=== PATIENT | female | born 1930 | race African-American/Black ===

== ENCOUNTER 2017-03-24 05:45 | Inpatient (IN) | payer MEDICARE, OTHER ==
[2017-03-24] VITALS (16 sets, daily range): BP systolic 146–202; BP diastolic 61–117
[~2017-03-24] VITALS: Ht 167.6 cm; Wt 74.1 kg
[2017-03-24] MEDS ORDERED: OXYB15TA9 PO (07:12)
[2017-03-24] MEDS ORDERED: CHOL100026 PO (07:12)
[2017-03-24] MEDS ORDERED: ATOR80TA PO (07:12)
[2017-03-24] MEDS ORDERED: IODIXANOL 320MG/ML 100 ML BOTTLE IV ONE (07:59)
[2017-03-24] MEDS ORDERED: LIDOCAINE HCL 1% 20ML VIAL (Pyxis) INJ ONE (07:59)
[2017-03-24] MEDS ORDERED: GENTAMICIN SULF 40MG/ML 2ML VIAL ONE (07:59)
[2017-03-24] MEDS ORDERED: GENTAMICIN/NS IRRIGATION 500 ML IR ONE (08:00)
[2017-03-24] MEDS ORDERED: CEFAZOLIN 1000MG PREMIX 100 ML IV ONE (08:00)
[2017-03-24 08:03] LABS: BASOPHILS % 1.2 % (0.0-2.0); EOSINOPHILS % 0.7 % (0.0-5.0); HEMATOCRIT. 33.4 % (36.0-48.0); HEMOGLOBIN. 10.8 g/dL (12.0-16.0); MEAN CORPUSCULAR VOLUME 89.4 fL (81.0-99.0); MEAN PLATELET VOLUME 8.5 fl (7.4-10.4); MONOCYTES % 13.1 % (2.0-8.0); PLATELET 154 x1000/uL (130-400); RED BLOOD CELL COUNT 3.74 mill/uL (4.2-5.4); RED CELL DISTRIBUTION WIDTH 14.9 % (11.6-14.6)
[2017-03-24 08:09] LABS: CHLORIDE 113 mEq/L (98-107); INR 1.1; PROTHROMBIN TIME 11.2 sec
[2017-03-24 08:15] LABS: CARBON DIOXIDE 26 mEq/L (21-32)
[2017-03-24] MEDS ORDERED: MIDAZOLAM HCL 2 MG/2 ML VIAL ONE ×2 (08:33→10:02)
[2017-03-24] MEDS ORDERED: HYDROMORPHONE HCL/PF 2MG/ML (OR) ONE (08:33)
[2017-03-24] MEDS ORDERED: LABETALOL HCL 20MG/4ML CARPUJECT IV PRN (09:00)
[2017-03-24] MEDS ORDERED: ONDANSETRON HCL 4MG/2ML VIAL IV PRN (09:00)
[2017-03-24] MEDS ORDERED: HYDROMORPHONE HCL/PF 2MG/ML CPJ IV PRN (09:00)
[2017-03-24] MEDS ORDERED: FLUMAZENIL 0.1 MG/ML 5ML VIAL IV ONE (10:30)
[2017-03-24] MEDS: CEFAZOLIN 1000MG PREMIX 50 ML IV SCH (18:09)
[2017-03-24] MEDS: AMLODIPINE 5MG TABLET PO SCH (18:42)
[2017-03-25] VITALS (17 sets, daily range): BP systolic 109–194; BP diastolic 48–88
[2017-03-25] MEDS: HYDROCODONE/ACETAMINOPHEN 5/325MG TABLET PO PRN ×2 (00:22→10:04)
[2017-03-25] MEDS: CEFAZOLIN 1000MG PREMIX 50 ML IV SCH (03:12)
[2017-03-25 06:50] LABS: BASOPHILS % 0.5 % (0.0-2.0); EOSINOPHILS % 0.3 % (0.0-5.0); HEMOGLOBIN. 11.7 g/dL (12.0-16.0); LYMPHOCYTES % 14.2 % (20.0-50.0); MEAN CORPUSCULAR HEMOGLOBIN 29.1 pg (28.0-32.0); MEAN CORPUSCULAR VOLUME 89.7 fL (81.0-99.0); MEAN PLATELET VOLUME 9.1 fl (7.4-10.4); PLATELET 168 x1000/uL (130-400); RED BLOOD CELL COUNT 4.01 mill/uL (4.2-5.4); RED CELL DISTRIBUTION WIDTH 14.8 % (11.6-14.6)
[2017-03-25 06:55] LABS: CARBON DIOXIDE 27 mEq/L (21-32); CHLORIDE 106 mEq/L (98-107)
[2017-03-25] MEDS: AMLODIPINE 5MG TABLET PO SCH (08:20)
[2017-03-25 15:03] LABS: CLARITY URINE CLEAR (CLEAR); COLOR URINE YELLOW (YELLOW); GLUCOSE URINE NEGATIVE (NEGATIVE); KETONES URINE NEGATIVE (NEGATIVE); LEUKOCYTE ESTERASE URINE NEGATIVE (NEGATIVE); NITRITE URINE NEGATIVE (NEGATIVE); OCCULT BLOOD URINE NEGATIVE (NEGATIVE); PH URINE 7.5 (4.5-8.0); PROTEIN URINE NEGATIVE (NEGATIVE); SPECIFIC GRAVITY URINE 1.012 (1.005-1.030)
[2017-03-26] VITALS (12 sets, daily range): BP systolic 114–162; BP diastolic 48–84
[2017-03-26] MEDS: AMLODIPINE 5MG TABLET PO SCH (08:21)
[2017-03-26] MEDS: HYDROCODONE/ACETAMINOPHEN 5/325MG TABLET PO PRN (23:01)
[2017-03-27] VITALS (11 sets, daily range): BP systolic 119–172; BP diastolic 56–75
[2017-03-27] MEDS: AMLODIPINE 5MG TABLET PO SCH (09:19)
[2017-03-27] MEDS ORDERED: TRAM-350 PO (17:18)
[2017-03-27] MEDS ORDERED: CEPH-568 PO (17:18)
[2017-03-27] MEDS ORDERED: AMLO10TA80 PO (17:22)
== END 2017-03-27 17:25 | DRG 243 ==
LOC: CCL 05:45 → EDSEX 05:45 → 3WST 05:46
PROVIDERS: ADMIT Internal Medicine Clinical Cardiac Electrophysiology; ATTEND Internal Medicine Clinical Cardiac Electrophysiology
PROC: 02H63JZ Insertion of Pacemaker Lead into Right Atrium, Percutaneous Approach (ICD-10-PCS; 2017-03-24)
PROC: 02HK3JZ Insertion of Pacemaker Lead into Right Ventricle, Percutaneous Approach (ICD-10-PCS; 2017-03-24)
PROC: B5171ZZ Fluoroscopy of Left Subclavian Vein using Low Osmolar Contrast (ICD-10-PCS; 2017-03-24)
PROC: 0JH606Z Insertion of Pacemaker, Dual Chamber into Chest Subcutaneous Tissue and Fascia, Open Approach (ICD-10-PCS; principal; 2017-03-24 08:00)
DX: I49.5 Sick sinus syndrome (principal); I69.351 Hemiplegia and hemiparesis following cerebral infarction affecting right dominant side; Q26.1 Persistent left superior vena cava; I44.0 Atrioventricular block, first degree; I10 Essential (primary) hypertension; R47.1 Dysarthria and anarthria; D64.9 Anemia, unspecified; E78.00 Pure hypercholesterolemia, unspecified; E78.5 Hyperlipidemia, unspecified; Z77.22 Contact with and (suspected) exposure to environmental tobacco smoke (acute) (chronic); Z79.899 Other long term (current) drug therapy; Z90.710 Acquired absence of both cervix and uterus
CPT/HCPCS: 33208; 36415; 71010; 75820; 80048; 81003; 85025; 85610; 93005; 97162; 97166; A4565; C1725; C1769; C1786; C1893; C1898; J0690; J1170; J1580; J2250; J3490; J7050; Q9967